=== PATIENT | female | born 1960 | race Caucasian/White ===

== ENCOUNTER → 2021-03-13 13:38 | Outpatient (CLI) | payer OTHER, SELFPAY ==
[2021-03-13 14:02] LABS: Add Manual Diff / Slide Review NO; Basophils Absolute Auto 0 /uL (0-100); Basophils Percent Auto 0.6 % (0-2); Eosinophils Absolute Auto 100 /uL (0-450); Eosinophils Percent Auto 1.8 % (2-4); Hematocrit 41.4 % (36-46); Hemoglobin 14.3 g/dL (12.0-16.0); Lymphocytes Absolute Auto 2700 /uL (1100-4500); Lymphocytes Percent Auto 40.4 % (25-40); Mean Corpuscular HGB Conc 34.5 % (30-36); Mean Corpuscular Hemoglobin 32.3 PG (26-34); Mean Corpuscular Volume 93.6 fL (80-100); Monocytes Absolute Auto 600 /uL (0-900); Monocytes Percent Auto 8.3 % (3-14); Neutrophils Absolute Auto 3300 /uL (1500-7000); Neutrophils Percent Auto 48.9 % (50-75); Platelet Count 238 X10^3/uL (150-400); Red Blood Cell Count 4.42 X10^6/uL (4.0-5.2); Red Cell Distribution Width 12.6 % (11.6-14.8); White Blood Cell Count 6.7 X10^3/uL (4.5-11.0)
[2021-03-13 14:19] LABS: Alanine Aminotransferase 36 IU/L (<35); Albumin 4.5 g/dL (3.5-5.0); Albumin Globulin Ratio 1.6 (1.0-2.8); Alkaline Phosphatase 64 U/L (38-126); Aspartate Aminotransferase 30 IU/L (14-36); Bilirubin Total 0.7 mg/dL (0.2-1.3); Blood Urea Nitrogen 14 mg/dL (7-17); Calcium 9.5 mg/dL (8.4-10.2); Carbon Dioxide 29 mmol/L (22-32); Chloride 101 mmol/L (98-107); Cholesterol 180 mg/dL (140-199); Estimated Glomerular Filt Rate > 60.0 mL/min (>60); Globulin 2.8 g/dL (1.7-4.1); Glucose 104 mg/dL (80-110); HDL Cholesterol 48 mg/dL (40-60); HEMOLYSIS < 15 (0-50); LDL Cholesterol Calculated 115 mg/dL (<100); Potassium 4.1 mmol/L (3.4-5.1); Sodium 136 mmol/L (137-145); Total Protein 7.3 g/dL (6.3-8.2); Triglycerides 86 mg/dL (35-150)
== END ==
PROVIDERS: PCP Registered Nurse; Referring Provider Registered Nurse; Visit Provider Registered Nurse
DX: Z00.00 Encounter for general adult medical examination without abnormal findings (principal); I10 Essential (primary) hypertension; K64.9 Unspecified hemorrhoids; Z82.49 Family history of ischemic heart disease and other diseases of the circulatory system
CPT/HCPCS: 36415; 80053; 80061; 85025

== ENCOUNTER → 2023-02-23 08:49 | Outpatient (CLI) | payer OTHER, SELFPAY ==
[2023-02-23 10:53] LABS: Alanine Aminotransferase 68 IU/L (<35); Albumin 4.6 g/dL (3.5-5.0); Albumin Globulin Ratio 1.8 (1.0-2.8); Alkaline Phosphatase 65 U/L (38-126); Aspartate Aminotransferase 39 IU/L (14-36); BUN Creatinine Ratio 24.6 (6-22); Bilirubin Total 0.7 mg/dL (0.2-1.3); Blood Urea Nitrogen 16 mg/dL (7-17); Calcium 9.3 mg/dL (8.4-10.2); Carbon Dioxide 30 mmol/L (22-32); Chloride 99 mmol/L (98-107); Cholesterol 170 mg/dL (140-199); Estimated Glomerular Filt Rate > 60 mL/min (>60); Globulin 2.6 g/dL (1.7-4.1); Glucose 112 mg/dL (80-110); HDL Cholesterol 44 mg/dL (40-60); HEMOLYSIS < 15 (0-50); LDL Cholesterol Calculated 101 mg/dL (<100); Potassium 4.4 mmol/L (3.4-5.1); Sodium 138 mmol/L (137-145); Total Protein 7.2 g/dL (6.3-8.2); Triglycerides 125 mg/dL (35-150)
[2023-02-23 12:29] LABS: Creatinine Urine Random 204.6 mg/dL
[2023-02-23 12:35] LABS: Microalbumi Creatinin Ratio Ur 2.9 ug/mg CR (<30); Microalbumin Urine Random 0.6 mg/dL (0-1.6)
== END ==
PROVIDERS: PCP Family Medicine; Referring Provider Family Medicine; Visit Provider Family Medicine
DX: E78.5 Hyperlipidemia, unspecified (principal); I10 Essential (primary) hypertension; M21.611 Bunion of right foot
CPT/HCPCS: 36415; 80053; 80061; 82043; 82570

== ENCOUNTER → 2023-03-14 12:41 | Outpatient (CLI) | payer OTHER, SELFPAY ==
--- NOTE | 2023-03-14 12:42 | DI.MG.S_ITS ---
BILATERAL DIGITAL SCREENING MAMMOGRAM 3D/2D WITH CAD: 03/14/2023 CLINICAL: Routine screening. Comparison is made to exams dated: 10/29/2015 mammogram and 03/14/2013 mammogram - [facility]. Both breasts are heterogeneously dense, which may obscure small masses (category c / 51-75% glandular tissue). Current study was also evaluated with a Computer Aided Detection (CAD) system. No significant masses, calcifications, or other findings are seen in either breast. There has been no significant interval change. IMPRESSION: NEGATIVE There is no mammographic evidence of malignancy. A 1 year screening mammogram is recommended. Based on the Tyrer Cuzick model (a risk assessment model) the patient's lifetime risk is 12.0% and her 10 year risk is 5.4%. According to the ACR, ACS, and NCCN guidelines, an annual breast MRI exam along with mammogram is recommended if the patient's lifetime risk is 20% or greater. This exam was interpreted at Station ID: [id number]. NOTE: For mammograms, a report in lay terms will be sent to the patient. Approximately 15% of breast malignancies will not be visualized mammographically. In the management of a palpable breast mass, a negative mammogram must not discourage biopsy of a clinically suspicious lesion. Electronically Signed By: Tyrell mack/barb:03/14/2023 14:04:32 letter sent: Normal Exam ACR BI-RADS Category 1: Negative 3341F
== END ==
PROVIDERS: PCP Family Medicine; Referring Provider Family Medicine; Visit Provider Family Medicine
DX: Z12.31 Encounter for screening mammogram for malignant neoplasm of breast (principal)
CPT/HCPCS: 77063; 77067

== ENCOUNTER 2023-06-03 11:42 | Day surgery (SDC) | payer OTHER, SELFPAY ==
--- NOTE | 2023-06-03 | PATH_ITS ---
[facility] Accession Number: [id number] No. of containers..01 Tissue . 01 Material submitted: . colon - CECAL POLYP . 01 Diagnosis: Cecal Polyp, Biopsy: Serrated polyp with focal crypt architectural features consistent with sessile serrated adenoma. [facility] 06/09/2023 1723 Local . 01 Electronically signed: . Shaila Smith MD, Pathologist NPI- [id number] . 01 Gross description: . CECAL POLYP: Received in formalin are 2 fragment(s) of jerry, soft tissue measuring 0.1 x 0.1 x 0.1 cm to 0.3 x 0.2 x 0.2 cm submitted entirely in 1 cassette(s) /[facility]DE 06/06/2023 2317 Local . 01 Pathologist provided ICD-10: D12.0 . 01 CPT . 082919 Specimen Comment: A courtesy copy of this report has been sent to [facility] Pathology Performed at: 01 [facility] Located within [facility] [address] [place] [address] [address], [place], [place] [id number] MD Bernardo Giordano MD Phone: [phone]
[2023-06-03 12:13] VITALS: BMI 29.2
[2023-06-03 12:21] VITALS: BP 128/83; PULSE 89; RESP 16; TEMP 36.6; O2SAT 96
[2023-06-03] MEDS: LACTATED RINGERS 1,000 ML 42 ML IV (12:28)
--- NOTE | 2023-06-03 14:19 | P.HP_ITS ---
History of Present Illness History of Present Illness Date Patient Seen: 06/03/23 Time Patient Seen: 14:19 Chief complaint: Screening Colonoscopy Narrative: 59-year-old female presents today for screening colonoscopy. It has been 10+ years since her last screening [place] She does not recall having had any polyps at the time she has no family history of colon cancer and endorses no concerning symptoms of bleeding changes in bowel habits or abdominal pain. She has no further questions today and would like to proceed [facility] Medical History Acne (~2016) Adult general medical exam Allergies (~1994) Bunion, right foot Cervical cancer screening Essential hypertension (~2018) Foot pain (~2018) Screening for malignant neoplasm of colon Sleep apnea Syncope Family History Father Cecal cancer Mother Diabetes mellitus Hypertension Hyperlipidemia Stroke Brother No problems noted. Sister Suicide Social History household members: spouse Smoking Status: Never smoker alcohol intake: current substance use type: marijuana (as a teenager ) Meds Home Medications and Allergies Home Medications Medication Instructions Recorded Confirmed Type lisinopril 10 mg tablet 10 mg PO DAILY #90 tabs 12/15/22 06/03/23 Rx Allergies Allergy/AdvReac Type Severity Reaction Status Date / Time No Known Drug Allergies Allergy Verified 06/03/23 12:30 Exam Vital Signs (past 8 hours): - 06/03/23 12:21 Temperature 97.9 F Pulse Rate 89 Respiratory Rate 16 Blood Pressure 128/83 Pulse Oximetry 96 Oxygen Delivery Method Room Air Oxygen Delivery Method Room Air Const General: cooperative, healthy appearing and comfortable Nutritional Appearance: well nourished and overweight (BMI 29) [facility] Head: normal to inspection Mouth: oral mucosae normal Eyes General: appearance normal, both eyes and all related structures Resp Effort & Inspection: normal respiratory effort and able to speak in complete sentences GI Palpation: soft and No tender Assessment & Plan Assessment and plan (1) Screening for malignant neoplasm of colon: Status: Acute Assessment & Plan narrative: Presents today for screening colonoscopy I discussed the risks benefits and alternatives including but not limited to perforation of the colon and an incomplete exam she fully understands these risks and would like to proceed.
[2023-06-03 15:10] VITALS: BP 105/68; PULSE 95; RESP 18; TEMP 36.4; O2SAT 94
[2023-06-03 15:15] VITALS: BP 106/65; PULSE 91; RESP 18; O2SAT 94
--- NOTE | 2023-06-03 15:18 | P.OP.COLON_ITS ---
Operative Date/Time/Diagnoses Date of procedure: 06/03/23 Time of procedure: 15:18 Pre-op diagnosis: Colon cancer screening no family history no history of polyps Post-op diagnosis: same Procedure & Clinicians Study performed: Colonoscopy and biopsy Same procedure as scheduled: Yes Indications: Colon cancer screening, no family history, no history of polyps Surgeon: Sabrina Capellan Procedure Notes Procedure in detail: Patient was taken to the endoscopy suite and placed in a left lateral decubitus position. A time-out was performed. With the help of anesthesiologist conscious sedation was induced and monitored throughout the case. A digital rectal exam was performed and there were no masses or strictures. There were some external anal skin tags. The colonoscope was introduced into the anal canal and advanced through to the cecum. There were scattered diverticula in sigmoid colon. A photograph of the appendiceal orifice was obtained. The bowel prep was good [place] bowel prep score of 2. The scope was then withdrawn for a total of 8 minutes. One small polyp was seen right at the appendiceal base in the cecum. This was photographed and removed with the biopsy forceps. A post biopsy photograph was obtained. The scope was retroflexed in the rectum and a photograph of the internal hemorrhoidal piles was obtained. Findings: divertiulosis and polyp(s) Specimen(s): other (Small cecal polyp) Complications: none Post-procedure Plan for aftercare: With no family history of colon cancer likely follow-up recommendation. We will be 7-10 years based on the pathology report. Any patient with diverticula hemorrhoids or polyps is advised to take a daily fiber supplement
[2023-06-03 15:20] VITALS: BP 101/63; PULSE 91; RESP 24; O2SAT 94
[2023-06-03 15:25] VITALS: BP 118/72; PULSE 84; RESP 16; TEMP 36.2; O2SAT 94
[2023-06-03 15:34] VITALS: BP 118/72; PULSE 89; RESP 14; TEMP 36.2; O2SAT 95
== END 2023-06-03 15:48 | disposition home or self-care (01) ==
PROVIDERS: PCP Family Medicine; Referring Provider Surgery; Visit Provider Surgery
PROC: 0DJD8ZZ Inspection of Lower Intestinal Tract, Via Natural or Artificial Opening Endoscopic (ICD-10-PCS; CPT 45378; principal; 2023-06-03 12:45)
DX: Z12.11 Encounter for screening for malignant neoplasm of colon (principal); K57.30 Diverticulosis of large intestine without perforation or abscess without bleeding; D12.0 Benign neoplasm of cecum
CPT/HCPCS: 45380; J2704

== ENCOUNTER → 2023-08-01 12:06 | Outpatient (CLI) | payer OTHER, SELFPAY ==
[2023-08-01 14:41] LABS: Add Manual Diff / Slide Review NO; Basophils Absolute Auto 0 /uL (0-100); Basophils Percent Auto 0.5 % (0-2); Eosinophils Absolute Auto 100 /uL (0-450); Eosinophils Percent Auto 1.8 % (2-4); Hematocrit 42.3 % (36-46); Hemoglobin 14.8 g/dL (12.0-16.0); Lymphocytes Absolute Auto 2400 /uL (1100-4500); Mean Corpuscular Volume 91.4 fL (80-100); Monocytes Absolute Auto 500 /uL (0-900); Monocytes Percent Auto 8.5 % (3-14); Neutrophils Absolute Auto 3100 /uL (1500-7000); Neutrophils Percent Auto 50.2 % (50-75); Platelet Count 224 X10^3/uL (150-400); Red Blood Cell Count 4.63 X10^6/uL (4.0-5.2); Red Cell Distribution Width 12.9 % (11.6-14.8); White Blood Cell Count 6.2 X10^3/uL (4.5-11.0)
[2023-08-01 14:44] LABS: Hemoglobin A1C% w Est Avg Glu 6.4 % (4.0-6.0)
[2023-08-01 15:28] LABS: Alanine Aminotransferase 66 IU/L (<35); Albumin 4.3 g/dL (3.5-5.0); Albumin Globulin Ratio 1.4 (1.0-2.8); Alkaline Phosphatase 68 U/L (38-126); Aspartate Aminotransferase 37 IU/L (14-36); BUN Creatinine Ratio 23.1 (6-22); Bilirubin Total 0.6 mg/dL (0.2-1.3); Blood Urea Nitrogen 15 mg/dL (7-17); Calcium 9.6 mg/dL (8.4-10.2); Carbon Dioxide 30 mmol/L (22-32); Chloride 102 mmol/L (98-107); Cholesterol 188 mg/dL (140-199); Estimated Glomerular Filt Rate > 60 mL/min (>60); Glucose 96 mg/dL (80-110); HDL Cholesterol 40 mg/dL (40-60); HEMOLYSIS < 15 (0-50); LDL Cholesterol Calculated 124 mg/dL (<100); Potassium 4.1 mmol/L (3.4-5.1); Sodium 140 mmol/L (137-145); Total Protein 7.3 g/dL (6.3-8.2); Triglycerides 122 mg/dL (35-150)
== END ==
PROVIDERS: PCP Family Medicine; Referring Provider Family Medicine; Visit Provider Family Medicine
DX: Z00.00 Encounter for general adult medical examination without abnormal findings (principal); R73.9 Hyperglycemia, unspecified; E78.5 Hyperlipidemia, unspecified; I10 Essential (primary) hypertension
CPT/HCPCS: 36415; 80053; 80061; 83036; 85025

== ENCOUNTER → 2023-11-29 13:13 | Outpatient (CLI) | payer OTHER, SELFPAY ==
[2023-11-29 13:49] LABS: Hemoglobin A1C% w Est Avg Glu 6.2 % (4.0-6.0)
== END ==
LOC: LAB 13:14
PROVIDERS: PCP Family Medicine; Referring Provider Family Medicine; Visit Provider Family Medicine
DX: E11.9 Type 2 diabetes mellitus without complications (principal); R73.9 Hyperglycemia, unspecified
CPT/HCPCS: 36415; 83036

== ENCOUNTER → 2024-04-06 12:15 | Outpatient (CLI) | payer OTHER, SELFPAY ==
[2024-04-06 13:24] LABS: HEMOLYSIS < 15 (0-50)
[2024-04-06 13:29] LABS: Alanine Aminotransferase 86 IU/L (<35); Albumin 4.8 g/dL (3.5-5.0); Albumin Globulin Ratio 1.5 (1.0-2.8); Alkaline Phosphatase 62 U/L (38-126); Aspartate Aminotransferase 47 IU/L (14-36); BUN Creatinine Ratio 22.2 (6-22); Bilirubin Total 0.7 mg/dL (0.2-1.3); Blood Urea Nitrogen 16 mg/dL (7-17); Calcium 9.5 mg/dL (8.4-10.2); Carbon Dioxide 29 mmol/L (22-32); Chloride 102 mmol/L (98-107); Cholesterol 165 mg/dL (140-199); Estimated Glomerular Filt Rate > 60 mL/min (>60); Globulin 3.1 g/dL (1.7-4.1); Glucose 98 mg/dL (80-110); HDL Cholesterol 45 mg/dL (40-60); LDL Cholesterol Calculated 101 mg/dL (<100); Potassium 4.2 mmol/L (3.4-5.1); Sodium 138 mmol/L (137-145); Total Protein 7.9 g/dL (6.3-8.2); Triglycerides 97 mg/dL (35-150)
[2024-04-06 13:33] LABS: Hemoglobin A1C% w Est Avg Glu 5.8 % (4.0-6.0)
[2024-04-06 13:48] LABS: High Sensitivity CRP - Cardiac 1.5 mg/L (1.0-3.0)
== END ==
LOC: LAB 12:15
PROVIDERS: PCP Family Medicine; Referring Provider Family Medicine; Visit Provider Family Medicine
DX: E11.9 Type 2 diabetes mellitus without complications (principal); E66.9 Obesity, unspecified; E78.5 Hyperlipidemia, unspecified; I10 Essential (primary) hypertension; M21.611 Bunion of right foot
CPT/HCPCS: 36415; 80053; 80061; 83036; 86140

== ENCOUNTER → 2024-04-13 13:42 | Outpatient (CLI) | payer OTHER, SELFPAY ==
--- NOTE | 2024-04-13 14:18 | EKG_ITS ---
[id number] [place] [address] Test Date: 2024-04-13 Pat Name: Latonya Edmond Department: Room: Gender: Female Facilities Director: : 1960 Requested By: Order Number: [id number] Reading MD: Rafi Lucio MD Measurements Intervals [place] Rate: 81 P: 52 CT: 130 QRS: 60 QRSD: 86 T: 33 QT: 372 QTc: 432 Interpretive Statements Normal sinus rhythm Nonspecific T wave abnormality NO PRIOR TRACING Electronically Signed On 04-13-2024 16:25:52 PDT by Rafi Lucio MD
== END ==
PROVIDERS: PCP Family Medicine; Referring Provider Podiatrist; Visit Provider Podiatrist
DX: Z01.818 Encounter for other preprocedural examination (principal)
CPT/HCPCS: 93005

== ENCOUNTER → 2024-08-16 14:57 | Outpatient (CLI) | payer OTHER, SELFPAY ==
--- NOTE | 2024-08-16 14:58 | DI.RAD.S_ITS ---
PROCEDURE: XR HIP W PEL IF DONE DELVIS MIN 4V INDICATIONS: Left hip pain; suspect arthritis TECHNIQUE: AP pelvis with lateral view(s) of the right hip(s). COMPARISON: None. FINDINGS: Bones: There are no osseous abnormalities. SI and hip joints: Severe left and mild right hip degeneration appreciated. The SI joints are normal. Moderate L5-S1 degenerative disc disease seen. Soft tissues: No soft tissue swelling, calcification or mass. IMPRESSION: Severe left and mild right hip degeneration. Moderate L5-S1 degenerative disc disease Dictated by: Rafi Farrar M.D. on 08/17/2024 at 7:36 Approved by: Rafi Farrar M.D. on 08/17/2024 at 7:37
== END ==
PROVIDERS: PCP Family Medicine; Referring Provider Physician Assistant; Visit Provider Physician Assistant
DX: M16.0 Bilateral primary osteoarthritis of hip (principal); M51.379 Other intervertebral disc degeneration, lumbosacral region without mention of lumbar back pain or lower extremity pain; M25.552 Pain in left hip
CPT/HCPCS: 73522

== ENCOUNTER → 2024-09-28 16:48 | Outpatient (CLI) | payer OTHER, SELFPAY ==
[2024-09-28 17:44] LABS: Hemoglobin A1C% w Est Avg Glu 5.3 % (4.0-6.0)
[2024-09-28 17:57] LABS: Alanine Aminotransferase 55 IU/L (<35); Albumin 4.3 g/dL (3.5-5.0); Albumin Globulin Ratio 1.7 (1.0-2.8); Alkaline Phosphatase 63 U/L (38-126); Aspartate Aminotransferase 40 IU/L (14-36); Bilirubin Total 0.5 mg/dL (0.2-1.3); Blood Urea Nitrogen 17 mg/dL (7-17); Calcium 9.9 mg/dL (8.4-10.2); Carbon Dioxide 31 mmol/L (22-32); Chloride 99 mmol/L (98-107); Cholesterol 177 mg/dL (140-199); Estimated Glomerular Filt Rate > 60 mL/min (>60); Globulin 2.6 g/dL (1.7-4.1); Glucose 72 mg/dL (80-110); HDL Cholesterol 59 mg/dL (40-60); HEMOLYSIS < 15 (0-50); LDL Cholesterol Calculated 103 mg/dL (<100); Potassium 4.6 mmol/L (3.4-5.1); Sodium 136 mmol/L (137-145); Total Protein 6.9 g/dL (6.3-8.2); Triglycerides 76 mg/dL (35-150)
== END ==
LOC: LAB 16:49
PROVIDERS: PCP Family Medicine; Referring Provider Family Medicine; Visit Provider Family Medicine
DX: Z00.00 Encounter for general adult medical examination without abnormal findings (principal); E66.3 Overweight; E11.9 Type 2 diabetes mellitus without complications; E78.5 Hyperlipidemia, unspecified; I10 Essential (primary) hypertension
CPT/HCPCS: 36415; 80053; 80061; 83036

== ENCOUNTER → 2024-10-16 11:26 | Outpatient (CLI) | payer OTHER, SELFPAY ==
--- NOTE | 2024-10-16 11:43 | EKG_ITS ---
[id number] [address] Test Date: 2024-10-16 Pat Name: Latonya Edmond Department: [facility] Room: Gender: Female Clerical Support Specialist: gee : 1960 Requested By: Order Number: [id number] Reading MD: Measurements Intervals [place] Rate: 71 P: 74 [place]: 122 QRS: 74 QRSD: 90 T: 62 QT: 400 QTc: 434 Interpretive Statements Normal sinus rhythm Septal infarct , age undetermined
== END ==
PROVIDERS: PCP Family Medicine; Referring Provider Orthopaedic Surgery; Visit Provider Orthopaedic Surgery
DX: Z01.818 Encounter for other preprocedural examination (principal); Z01.812 Encounter for preprocedural laboratory examination; R73.9 Hyperglycemia, unspecified; N39.0 Urinary tract infection, site not specified
CPT/HCPCS: 93005

== ENCOUNTER → 2024-11-08 17:48 | Outpatient (CLI) | payer OTHER, SELFPAY ==
--- NOTE | 2024-11-08 17:49 | DI.MG.S_ITS ---
BILATERAL DIGITAL SCREENING MAMMOGRAM 3D/2D WITH CAD: 11/08/2024 CLINICAL: Routine screening. Comparison is made to exams dated: 03/14/2023 mammogram - [facility], 10/29/2015 mammogram, and 03/14/2013 mammogram - [facility]. The breasts are heterogeneously dense, which may obscure small masses (category c / 51-75% glandular tissue). Current study was also evaluated with a Computer Aided Detection (CAD) system. No significant masses, calcifications, or other findings are seen in either breast. There has been no significant interval change. IMPRESSION: NEGATIVE There is no mammographic evidence of malignancy. A 1 year screening mammogram is recommended. Based on the Tyrer Cuzick model (a risk assessment model) the patient's lifetime risk is 11.6% and her 10 year risk is 5.4%. According to the ACR, ACS, and NCCN guidelines, an annual breast MRI exam along with mammogram is recommended if the patient's lifetime risk is 20% or greater. This exam was interpreted at Station ID: [id number]. NOTE: For mammograms, a report in lay terms will be sent to the patient. Approximately 15% of breast malignancies will not be visualized mammographically. In the management of a palpable breast mass, a negative mammogram must not discourage biopsy of a clinically suspicious lesion. Electronically Signed By: Delon hawkins/barb:11/10/2024 14:40:06 letter sent: Normal Exam ACR BI-RADS Category 1: Negative
== END ==
PROVIDERS: PCP Family Medicine; Referring Provider Family Medicine; Visit Provider Family Medicine
DX: Z12.31 Encounter for screening mammogram for malignant neoplasm of breast (principal); R92.333 Mammographic heterogeneous density, bilateral breasts
CPT/HCPCS: 77063; 77067

== ENCOUNTER → 2025-03-19 12:43 | Outpatient (CLI) | payer MEDICARE, OTHER, SELFPAY ==
[2025-03-19 13:58] LABS: Alanine Aminotransferase 42 IU/L (<35); Albumin 4.9 g/dL (3.5-5.0); Alkaline Phosphatase 79 U/L (38-126); Aspartate Aminotransferase 32 IU/L (14-36); BUN Creatinine Ratio 27.3 (6-22); Bilirubin Total 1.1 mg/dL (0.2-1.3); Blood Urea Nitrogen 18 mg/dL (7-17); Calcium 9.7 mg/dL (8.4-10.2); Carbon Dioxide 27 mmol/L (22-32); Chloride 98 mmol/L (98-107); Estimated Glomerular Filt Rate > 60 mL/min (>60); Globulin 2.5 g/dL (1.7-4.1); Glucose 92 mg/dL (70-99); HEMOLYSIS < 15 (0-50); Potassium 4.6 mmol/L (3.4-5.1); Sodium 135 mmol/L (137-145); Total Protein 7.4 g/dL (6.3-8.2)
== END ==
PROVIDERS: PCP Family Medicine; Referring Provider Family Medicine; Visit Provider Family Medicine
DX: E11.9 Type 2 diabetes mellitus without complications (principal); I10 Essential (primary) hypertension
CPT/HCPCS: 36415; 80053; 83036